=== PATIENT | female | born 1995 | race Caucasian/White ===

== ENCOUNTER 2017-09-09 07:55 | Emergency (ER) | payer MEDICAID, OTHER ==
[~2017-09-09] VITALS: Ht 170.2 cm; Wt 120.2 kg
[2017-09-09 08:00] VITALS: BP 104/73
== END 2017-09-09 10:20 | disposition home or self-care (01) ==
LOC: ER 07:55
DX: S29.012A Strain of muscle and tendon of back wall of thorax, initial encounter (principal); Z88.1 Allergy status to other antibiotic agents; V43.52XA Car driver injured in collision with other type car in traffic accident, initial encounter; Y93.89 Activity, other specified; Y92.410 Unspecified street and highway as the place of occurrence of the external cause; Y99.8 Other external cause status
CPT/HCPCS: 72070